=== PATIENT | female | born 1970 | race African-American/Black ===

== ENCOUNTER 2023-04-23 15:23 | Emergency (ER) | payer OTHER ==
[2023-04-23 15:59] LABS: #Basophils 0.1 10x3/uL (0.0-0.2); #Eosinphils 0.2 10x3/uL (0.0-0.5); #Monocytes 1.4 10x3/uL (0.0-1.1); #Neutrophils 6.9 10x3/uL (1.5-8.4); %Basophils 0.5 % (0.0-2.0); %Eosinophils 1.7 % (0.0-6.0); %Lymphocytes 18.9 % (18.0-47.0); %Monocytes 13.3 % (0.0-10.0); %Neutrophils 64.9 % (40.0-75.0); Hematocrit 42.5 % (34.9-44.5); Hemoglobin 13.9 g/dL (12.0-15.5); Mean Corpuscular HGB CONC 32.7 g/dL (32.0-36.0); Mean Corpuscular Hemoglobin 27.8 pg (27.0-33.0); Mean Platelet Volume 11.1 fl (7.4-10.4); Platelet Count 348 10x3/uL (150-450); RBC Distribution Width 14.7 % (11.5-14.5); White Blood Cell (WBC) Count 10.7 10x3/uL (3.5-10.5)
[2023-04-23 16:01] LABS: ALT (SGPT) 17 U/L (8-55); AST (SGOT) 12 U/L (5-34); Albumin 3.9 g/dL (3.5-5.0); Alkaline Phosphatase 78 U/L (40-110); Anion Gap 11 mmol/L (10-20); BUN (Urea Nitrogen) 22 mg/dL (9.8-20.1); Bilirubin, Total 0.4 mg/dL (0.2-1.2); Calc. Creatinine Clearance 0 mL/min (70-130); Calcium 8.4 mg/dL (7.8-10.44); Carbon Dioxide 27 mmol/L (22-29); Chloride 105 mmol/L (98-107); Estimated GFR 45; Globulin 2.7 g/dL (2.4-3.5); Glucose 115 mg/dL (70-105); Potassium 3.9 mmol/L (3.5-5.1); Protein, Total 6.6 g/dL (6.0-8.3); Sodium 139 mmol/L (136-145)
[2023-04-23 16:06] LABS: Troponin I 0.021 ng/mL (< 0.028)
[2023-04-23] MEDS ORDERED: Metoclopramide HCl 10 MG (2 mL) VIAL ONE (16:25)
[2023-04-23] MEDS ORDERED: diphenhydrAMINE 50 MG/ML VIAL ONE (16:25)
[2023-04-23] MEDS ORDERED: Aspirin Chewable 81 MG TAB ONE (19:51)
[2023-04-23] MEDS ORDERED: Acetaminophen 500 MG TAB ONE (19:51)
[2023-04-23 20:14] LABS: Influenza A by NAA Not Detected (NotDetected); Influenza B by NAA Not Detected (NotDetected); SARS-CoV-2 NAA Rapid Test Not Detected (NotDetected)
[2023-04-23] MEDS ORDERED: HYDROcodone/Acetaminophen 10/325 mg Tablet ONE (22:25)
[2023-04-23] MEDS ORDERED: Carvedilol 25 MG TAB PO SCH (22:30)
[2023-04-23] MEDS ORDERED: Sacubitril 24MG/Valsartan 26 MG TAB PO SCH (22:30)
[2023-04-23] MEDS ORDERED: Carvedilol 25 MG TAB ONE (22:58)
[2023-04-24] MEDS ORDERED: HYDROcodone/Acetaminophen 10/325 mg Tablet ONE (06:04)
[2023-04-24] MEDS ORDERED: Furosemide 40 MG TAB ONE (06:04)
[2023-04-24] MEDS ORDERED: Carvedilol 25 MG TAB ONE (06:05)
[2023-04-24] MEDS ORDERED: Spironolactone 25 MG TAB PO SCH (06:15)
[2023-04-24] MEDS ORDERED: Sacubitril 24MG/Valsartan 26 MG TAB PO SCH (06:15)
== END 2023-04-24 07:02 | disposition short-term general hospital (02) ==
LOC: CSHERS 15:23
DX: R51.9 Headache, unspecified (principal); D35.2 Benign neoplasm of pituitary gland; I63.81 Other cerebral infarction due to occlusion or stenosis of small artery; E11.9 Type 2 diabetes mellitus without complications; I11.0 Hypertensive heart disease with heart failure; I50.9 Heart failure, unspecified; Z79.899 Other long term (current) drug therapy
CPT/HCPCS: 36415; 70450; 71045; 80053; 83880; 84484; 85025; 93005; 96361; 96374; J1200; J2765

== ENCOUNTER 2023-12-19 12:26 | Emergency (ER) | payer OTHER ==
[~2023-12-19 12:26] MED LIST: Iopamidol 300 61% 100 ML VIAL FS ONE
[2023-12-19 14:39] LABS: #Basophils 0.04 10x3/uL (0.0-0.2); #Eosinophils 0.07 10x3/uL (0.0-0.5); #Monocytes 0.78 10x3/uL (0.0-1.1); #Neutrophils 4.83 10x3/uL (1.5-8.4); %Basophils 0.5 % (0.0-2.0); %Lymphocytes 20.4 % (18.0-47.0); %Monocytes 10.7 % (0.0-10.0); %Neutrophils 66.2 % (40.0-75.0); Hematocrit 48.1 % (34.9-44.5); Hemoglobin 14.9 g/dL (12.0-15.5); Mean Corpuscular Hemoglobin 26.1 pg (27.0-33.0); Mean Corpuscular Volume 84.4 fL (81.6-98.3); Mean Platelet Volume 11.2 fL (7.4-10.4); Platelet Count 355 10x3/uL (150-450); RBC Distribution Width 14.5 % (11.5-14.5); White Blood Cell (WBC) Count 7.3 10x3/uL (3.5-10.5)
[2023-12-19] MEDS ORDERED: Ondansetron PF 4 MG/2 ML Vial ONE (14:42)
[2023-12-19] MEDS ORDERED: fentaNYL 50 mcg/mL 1 mL Vial ONE (14:42)
[2023-12-19 14:52] LABS: ALT (SGPT) 28 U/L (8-55); AST (SGOT) 26 U/L (5-34); Albumin 3.4 g/dL (3.5-5.0); Alkaline Phosphatase 92 U/L (40-110); Anion Gap 19 mmol/L (10-20); BUN (Urea Nitrogen) 24 mg/dL (9.8-20.1); Bilirubin, Total 0.6 mg/dL (0.2-1.2); Calc. Creatinine Clearance 0 mL/min (70-130); Calcium 8.8 mg/dL (7.8-10.44); Carbon Dioxide 22 mmol/L (22-29); Chloride 102 mmol/L (98-107); Estimated GFR 42; Globulin 3.5 g/dL (2.4-3.5); Glucose 251 mg/dL (70-105); Lipase 22 U/L (8-78); Potassium 3.6 mmol/L (3.5-5.1); Protein, Total 6.9 g/dL (6.0-8.3); Sodium 139 mmol/L (136-145)
[2023-12-19 15:23] LABS: Bilirubin Neg (Negative); Blood, Urine Negative (Negative); Glucose, Urine (Dipstick) >=1000 mg/dL (Negative); Ketone, Urine 15 mg/dL (Negative); Leukocyte Negative (Negative); Nitrite Negative (Negative); Protein, Urine (Dipstick) 30 mg/dl (Neg-Trace)
[2023-12-19 15:59] LABS: Clarity Hazy (Clear)
[2023-12-19 16:00] LABS: CAUTI Indications for Culture Pelvic or flank pain; RBC/HPF 0-3 HPF (0-3)
[2023-12-19 16:01] LABS: Bacteria/HPF 4+ HPF (None Seen)
[2023-12-19 16:02] LABS: Urine Culture Reflex No No
== END 2023-12-19 17:37 | disposition home or self-care (01) ==
LOC: CSHERS 12:26
DX: K59.00 Constipation, unspecified (principal); E11.9 Type 2 diabetes mellitus without complications; I11.0 Hypertensive heart disease with heart failure; I50.9 Heart failure, unspecified; E78.00 Pure hypercholesterolemia, unspecified; Z79.899 Other long term (current) drug therapy; Z79.4 Long term (current) use of insulin
CPT/HCPCS: 36415; 74177; 80053; 81001; 83690; 85025; 96374; 96375; J2405; J3010; Q9967